=== PATIENT | male | born 1995 | race Caucasian/White ===

== ENCOUNTER 2025-07-06 19:20 | Emergency (ER) | payer BC, SELFPAY ==
--- NOTE | ~2025-07-06 | XR_ITS ---
XR chest 1V portable INDICATION:Chest discomfort . REFERENCE: 12/18/2018 FINDINGS: A single AP of the chest demonstrates normal heart size. The lungs are clear. There is no evidence of pneumothorax or pleural effusion. IMPRESSION: No acute pulmonary findings. Reviewed, dictated and finalized at location S. [facility]
[2025-07-06 19:25] VITALS: BP 130/78; PULSE 68; RESP 18; TEMP 36.7; O2SAT 98
--- NOTE | 2025-07-06 19:37 | ECG_ITS ---
Test Date: 2025-07-06 19:45:33 Measurements Intervals [place] Rate: 62 P: 42 VA: 154 QRS: 48 QRSD: 79 T: 35 QT: 358 QTc: 366 Interpretive Statements SINUS RHYTHM WITH SINUS ARRHYTHMIA No previous ECG available for comparison Electronically Signed On 07-06-2025 21:28:06 [employer] by Nilesh Corral M.D.
--- NOTE | 2025-07-06 19:37 | ED_ITS ---
HPI - URI/Sore Throat General Chief Complaint: Upper Respiratory Infection Stated Complaint: upper resp infection Time Seen by Provider: 07/06/25 19:37 Source: patient and family Mode of arrival: ambulatory Limitations: no limitations History of Present Illness HPI Narrative: This is a 29-year-old male with history of hypertension hyperlipidemia presents with chest pain with deep inspiration non reproducible no radiation of his pain no shortness of breath no fever chills does have some body aches with some no nausea vomiting no abdominal pain no dysuria no flank pain or hematuria. Pain started earlier today has been working on drywall repair. MD elicited complaint: cough Severity: mild Description of mucous: clear Exacerbating factors: deep breaths Related Data Allergies Allergy/AdvReac Type Severity Reaction Status Date / Time No Known Allergies Allergy Verified 07/06/25 19:48 Review of Systems Review of Systems: All systems reviewed & are unremarkable except as noted in HPI and below PMFSH Past Medical History Medical History HTN (hypertension) HLD (hyperlipidemia) Exam Const: General: healthy appearing Nutritional Appearance: well nourished and obese Orientation/consciousness: patient oriented x3 Neck: Neck: normal visual inspection and no lymphadenopathy Chest: Chest palpation & inspection: normal inspection of the chest Resp: Effort & Inspection: normal respiratory effort Auscultation: clear to auscultation bilaterally Cardio: Rate: regular rate Rhythm: regular rhythm GI: GI Palp: Yes Soft to palpation Auscultation: normal bowel sounds Back/Spine/Pelvis: Back: no CVA tenderness Skin: General skin exam: normal color Rashes: no rashes Course Course Emergency Course: Medical decision making narrative: The patient was evaluated by myself in the emergency department. History obtained from the patient was independent historian and physical exam performed and witnessed by nurse. Patient had an EKG which shows normal sinus rhythm x- ray that shows no acute cardiopulmonary abnormalities And COVID RSV influenza negative. Repeat assessment patient doing well on repeat exam with no acute distress Symptoms been stable since arrival to the emergency department Repeat vitals are stable Patient agrees with discussion and after shared medical decision making and agrees with discharge All questions answered to patient's satisfaction. Follow-up with primary in 3 to 5 days. Critical Care Time Critical Care Time Critical Care Time: No Discharge Plan Discharge Clinical Impression: Upper respiratory infection Qualifiers: URI type: unspecified URI Qualified Code(s): J06.9 - Acute upper respiratory infection, unspecified Patient Disposition: Home Condition: Stable Instructions: Antibiotic Form, Upper Respiratory Infection (ED) Additional Instructions: Advised take medication as prescribed and to follow with primary in the next 3 to 5 days. Patient Language: Kazakh Prescriptions: New azithromycin [Zithromax Z-Edward] 250 mg tablet See Rx Instructions .ROUTE .COMPLEX Qty: 6 0RF Rx Instructions: For 250 mg dose pack: take 500 mg today (day 1), then 250 mg for 4 days (days 2-5) Follow-up/Referrals: Simon,SRUTHI Quintanilla [Primary Care Provider]
[2025-07-06 20:38] LABS: Influenza A QL RT-PCR Negative (Negative); Influenza B QL RT-PCR Negative (Negative); RSV RNA, RT-PCR Negative (Negative); SARS-CoV-2 RNA PCR Negative (Negative)
[2025-07-06] MEDS: AZITHROMYCIN 250 MG TABLET 500 MG PO (20:46)
[2025-07-06 20:56] VITALS: BP 130/62; PULSE 74; RESP 18; O2SAT 99
--- OUTSIDE RECORDS SUMMARY | 2025-07-06 21:18 | XMS_ITS | Data Portability ---
Author Organization [facility] Address [address] [place] [address] Care Team Providers Care Wood Veneer Taper Name Role Phone FELIPE MONTES Primary Care Provider Assessment No assessment recorded. Plan of Treatment Reminders Order Date Submit Date Provider Last Modified By Organization Details Last Modified Time Details Appointments ANY 15 2025 10:45A M Felipe Montes, SONJA Not available Not available Not available Lab CBC 2024 025 [facility], [address] [place] [address], [address], 12/03/2024 06:49:59 CMP, serum or plasma 2024 025 [facility], [address] [place] [address] 2, [place], [address], 12/03/2024 06:49:57 lipid panel, serum 2024 025 [facility], [address] [place] [address], [facility] 2, [place], [address], 12/03/2024 06:49:56 HbA1c (hemoglob in A1c), blood 2024 025 [facility], [address] [facility], [facility] 2, [place], [address], 12/03/2024 07:33:43 HbA1c (hemoglob in A1c), blood 2023 024 JENNIFER In-Office Order, Internal Use Only DO Not Attach Compendium DO Not Attach Compendium, Do Not Delete/merge, [id number] 06/03/2024 12:32:06 CBC 2023 024 JENNIFER JAVIER, [address] [facility] 2, [place], [address], 06/04/2024 06:20:21 CMP, serum or plasma 2023 024 JENN[facility]ER [facility], [address] [facility] 2, [place], [address], 06/04/2024 06:20:20 lipid panel, serum 2023 024 JENNIFER SUKHDEEP, [address] [facility] 2, [place], [address], 06/04/2024 06:20:18 Referral gastroent erologist referral 2024 JENNIFER Aleja Michelle [employer], [address] [facility], [facility] [address], [place], [address], 05/10/2025 09:45:06 Procedures None recorded. Surgeries None recorded. Imaging None recorded. Medication Orders atenolol [address] [facility], [address] [place], [address], 07/03/2025 11:37:34 pantopraz ole 40 mg tablet,de layed release [address] [facility], [address] [place], [address], 06/05/2025 11:58:33 amlodipin e 5 mg tablet [address] [facility], [address] [place], [address], 06/05/2025 11:58:32 Nexium 40 mg capsule,d elayed release 2024 025 [facility] [address], [address], 06/05/2025 11:43:29 Patient TargetsNo targets recorded. Patient Instructions Encounter Date Encounter Id Patient Instructions Last Modified By Organization Details Last Modified Time 06/03/2024 [id number] A healthy lifestyle: care instructions jnanney Not available 06/03/2024 12:11:12 12/02/2024 [id number] A healthy lifestyle: care instructions jnanney Not available 12/02/2024 11:53:23 A healthy lifestyle: care instructions jnanney Not available 12/02/2024 11:53:23 06/05/2025 [id number] learning about high blood pressure jnanney Not available 06/05/2025 11:58:30 07/03/2025 [id number] learning about high blood pressure jnanney Not available 07/03/2025 11:37:25 Reason for Referral Solderer Referral for Gastroesophageal reflux disease without esophagitis Referring Physician: Felipe Montes, Family Medicine, Encounter Date: 04/12/2025 Results Created Date Observation Date Name Description Value Unit Range Abnormal Flag Note LastModifiedBy Organization Detail LastModifiedTime 06/03/2006/03/2024 LIPID PANEL cholesterol, total 146 mg/dL 100-19 9 Not Available [facility] [address] [place], [address], 06/04/2024 06:20:18 06/03/2006/03/2024 LIPID PANEL triglyceride s 210 mg/dL 0-149 above high normal Not Available [facility] [address] [place], [address], 06/04/2024 06:20:18 06/03/2006/03/2024 LIPID PANEL HDL cholesterol 40 mg/dL 40-[address] [facility] [address] [place], [address], 06/04/2024 06:20:18 06/03/20 24 06/03/2024 LIPID PANEL VLDL cholesterol daniel 42 mg/dL 5-40 above high normal Not Available [address], [address], 06/04/2024 06:20:18 06/03/20 24 06/03/2024 LIPID PANEL LDL chol calc (nih) 96 mg/dL 0-99 Not Available [address], [address], 06/04/2024 06:20:18 06/03/20 24 06/03/2024 COMP. METAB OLIC PANEL (14) glucose 90 mg/dL 70-99 Not Available [facility] & [address], [address], 06/04/2024 06:20:19 06/03/20 24 06/03/2024 COMP. METAB OLIC PANEL (14) BUN 22 mg/dL 6-20 above high normal Not Available [address], [address], 06/04/2024 06:20:19 06/03/20 24 06/03/2024 COMP. METAB OLIC PANEL (14) creatinine 1.07 mg/dL 0.76-1 .27 Not Available [address], [address], 06/04/2024 06:20:19 06/03/20 24 06/03/2024 COMP. METAB OLIC PANEL (14) eGFR 98 >=60 Units for eGFR value s are mL/mi n/1.7 3 The eGFR Calcu latio n has not been valid ated for patie nts under the age of 18. If test resul ts are displ ayed for a patie nt under the age of 18, disre ijeoma that value . Not Available [address], [address], 06/04/2024 06:20:19 06/03/20 24 06/03/2024 COMP. METAB OLIC PANEL (14) BUN/creatini ne ratio 21 9-20 above high normal Not Available [address], [address], 06/04/2024 06:20:19 06/03/20 24 06/03/2024 COMP. METAB OLIC PANEL (14) sodium 139 mmol/ L 134-14 4 Not Available [address], [address], 06/04/2024 06:20:19 06/03/20 24 06/03/2024 COMP. METAB OLIC PANEL (14) potassium 4.6 mmol/ L 3.5-5. 2 Not Available [address], [facility], 06/04/2024 06:20:19 06/03/20 24 06/03/2024 COMP. METAB OLIC PANEL (14) chloride 102 mmol/ L 96-106 Not Available [address], [address], 06/04/2024 06:20:19 06/03/20 24 06/03/2024 COMP. METAB OLIC PANEL (14) carbon dioxide, total 27 mmol/ L 20-29 Not Available [address], [address], 06/04/2024 06:20:19 06/03/20 24 06/03/2024 COMP. METAB OLIC PANEL (14) calcium 10.4 mg/dL 8.7-10 .2 above high normal Not Available [address], [address], 06/04/2024 06:20:19 06/03/20 24 06/03/2024 COMP. METAB OLIC PANEL (14) protein, total 7.6 g/dL 6.0-8. 5 Not Available [address], [address], 06/04/2024 06:20:19 06/03/20 24 06/03/2024 COMP. METAB OLIC PANEL (14) albumin 4.8 g/dL 4.3-5. 2 Not Available [address], [address], 06/04/2024 06:20:19 06/03/20 24 06/03/2024 COMP. METAB OLIC PANEL (14) globulin, total 2.8 g/dL 1.5-4. 5 Not Available [address], [address], 06/04/2024 06:20:19 06/03/20 24 06/03/2024 COMP. METAB OLIC PANEL (14) A/G ratio 1.7 1.2-2. 2 Not Available [address], [address], 06/04/2024 06:20:19 06/03/20 24 06/03/2024 COMP. METAB OLIC PANEL (14) bilirubin, total 0.5 mg/dL 0.0-1. 2 Not Available [address], [address], 06/04/2024 06:20:19 06/03/2006/03/2024 COMP. METAB OLIC PANEL (14) alkaline phosphatase 75 IU/L 44-121 Not Available [address], [address], 06/04/2024 06:20:19 06/03/20 24 06/03/2024 COMP. METAB OLIC PANEL (14) AST (SGOT) 36 IU/L 0-40 Not Available [address], [address], 06/04/2024 06:20:19 06/03/2006/03/2024 COMP. METAB OLIC PANEL (14) ALT (SGPT) 70 IU/L 0-44 above high normal Not Available [address], [address], 06/04/2024 06:20:19 06/03/2006/03/2024 CARDI OVASC ULAR REPOR T interpretati on Note Suppl ement al repor t is avail able. Not Available [address], [address], 06/04/2024 06:20:21 06/03/2006/03/2024 CARDI OVASC ULAR REPOR T pdf . Not Available [address], [address], 06/04/2024 06:20:21 06/03/2006/03/2024 CBC, PLATE LET, NO DIFFE RENTI AL WBC 5.5 x10e3 /uL 3.4-10 .8 Not Available [address], [address], 06/04/2024 06:20:21 06/03/2006/03/2024 CBC, PLATE LET, NO DIFFE RENTI AL RBC 5.15 x10e6 /uL 4.14-5 .80 Not Available [address], [address], 06/04/2024 06:20:21 06/03/2006/03/2024 CBC, PLATE LET, NO DIFFE RENTI AL hemoglobin 15.3 g/dL 13.0-1 7.7 Not Available [address], [address], 06/04/2024 06:20:21 06/03/2023 0606/03/2024 CBC, PLATE LET, NO DIFFE RENTI AL hematocrit 46.3 % 37.5-5 1.0 Not Available [address], [address], 06/04/2024 06:20:21 06/03/20 24 06/03/2024 CBC, PLATE LET, NO DIFFE RENTI AL MCV 90 fL 79-97 Not Available [address], [address], 06/04/2024 06:20:21 06/03/2006/03/2024 CBC, PLATE LET, NO DIFFE RENTI AL MCH 29.7 pg 26.6-3 3.0 Not Available [address], [address], 06/04/2024 06:20:21 06/03/2006/03/2024 CBC, PLATE LET, NO DIFFE RENTI AL MCHC 33.0 g/dL 31.5-3 5.7 Not Available [address], [address], 06/04/2024 06:20:21 06/03/2006/03/2024 CBC, PLATE LET, NO DIFFE RENTI AL RDW 12.6 % 11.5-1 4.5 Not Available [address], [address], 06/04/2024 06:20:21 06/03/2006/03/2024 CBC, PLATE LET, NO DIFFE RENTI AL platelets 211 x10e3 /uL 150-45 0 Mean Plate let Volum e 11.3 fL 8.9-1 2.7 N Not Available [address], [address], 06/04/2024 06:20:21 06/03/2006/03/2024 CBC, PLATE LET, NO DIFFE RENTI AL NRBC 0 % 0-0 Not Available [facility] & [address], [place], [address], 06/04/2024 06:20:21 06/03/2006/03/2024 HbA1c (hemo globi n A1c), blood HbA1c 5.7 Not Available In-Office Order Internal Use Only DO Not Attach Compendium DO Not Attach Compendium, Do Not Delete/merge, [id number] 06/03/2024 12:11:04 07/27/2007/27/2024 Lipas e [Enzy matic activ ity/v olume ] in Serum or Plasm a lipase [enzymatic activity/vol ume] in serum or plasma 22 U/L low: 8U/Lhi gh: 78U/L LIPAS E 22 8 - 78 U/L 07/27 3:13 PM [facility] Not Available Not Available 12/02/2024 11:40:31 07/27/20 24 07/27/2024 Lipas e [Enzy matic activ ity/v olume ] in Serum or Plasm a interpretati on and review of laboratory results Normal Not Available Not Available 11/2024 11:40:31 07/27/20 24 07/27/2024 CBC W Auto Diffe renti al panel - Blood leukocytes [#/volume] in blood by automated count 5.95 text: 4.00 - 12.00 10(3)/ mcL WBC 5.95 4.00 - 12.00 10(3) /mcL 07/27 2:38 PM [facility] Not Available Not Available 12/02/2024 11:40:31 07/27/20 24 07/27/2024 CBC W Auto Diffe renti al panel - Blood erythrocytes [#/volume] in blood by automated count 4.96 text: 4.40 - 5.80 10(6)/ mcL RBC 4.96 4.40 - 5.80 10(6) /mcL 07/27 2:38 PM [facility] Not Available Not Available 12/02/2024 11:40:31 07/27/20 24 07/27/2024 CBC W Auto Diffe renti al panel - Blood hemoglobin [mass/volume ] in blood 15 g/dL low: 13g/dL high: 16.5g/ dL HEMOG LOBIN (HGB) 15.0 13.0 - 16.5 g/dL 07/27 2:38 PM [facility] Not Available Not Available 12/02/2024 11:40:31 07/27/20 24 07/27/2024 CBC W Auto Diffe renti al panel - Blood hematocrit [volume fraction] of blood by automated count 43.1 % low: 38%hig h: 50% HEMAT OCRIT (HCT) 43.1 38.0 - 50.0 % 07/27 2:38 PM [facility] Not Available Not Available 12/02/2024 11:40:31 07/27/20 24 07/27/2024 CBC W Auto Diffe renti al panel - Blood MCV [entitic mean volume] in red blood cells by automated count 86.9 fL low: 82fLhi gh: 96fL MCV 86.9 82.0 - 96.0 fL 07/27 2:38 PM [facility] Not Available Not Available 12/02/2024 11:40:31 07/27/20 24 07/27/2024 CBC W Auto Diffe renti al panel - Blood MCH [entitic mass] by automated count 30.2 pg low: 26pghi gh: 32pg MCH 30.2 26.0 - 32.0 pg 07/27 2:38 PM [facility] Not Available Not Available 12/02/2024 11:40:31 07/27/20 24 07/27/2024 CBC W Auto Diffe renti al panel - Blood MCHC [entitic mass/volume] in red blood cells by automated count 34.8 g/dL low: 31g/dL high: 36g/dL MCHC 34.8 31.0 - 36.0 g/dL 07/27 2:38 PM [facility] Not Available Not Available 12/02/2024 11:40:31 07/27/20 24 07/27/2024 CBC W Auto Diffe renti al panel - Blood platelets [#/volume] in blood 213 text: 140 - 440 10(3)/ mcL PLATE LET COUNT 213 140 - 440 10(3) /mcL 07/27 2:38 PM [facility] Not Available Not Available 12/02/2024 11:40:31 07/27/20 24 07/27/2024 CBC W Auto Diffe renti al panel - Blood erythrocyte [distwidth] in red blood cells by automated count 11.7 % low: 11.8%h igh: 15.5% low RDW 11.7 (L) 11.8 - 15.5 % 07/27 2:38 PM [facility] Not Available Not Available 12/02/2024 11:40:31 07/27/20 24 07/27/2024 CBC W Auto Diffe renti al panel - Blood platelet [entitic mean volume] in blood by automated count 11.2 fL low: 8fLhig h: 12.6fL MPV 11.2 8.0 - 12.6 fL 07/27 2:38 PM [facility] Not Available Not Available 12/02/2024 11:40:31 07/27/20 24 07/27/2024 CBC W Auto Diffe renti al panel - Blood neutrophils/ leukocytes in blood by automated count 48.7 % low: 40%hig h: 68% NEUTR OPHIL S 48.7 40.0 - 68.0 % 07/27 2:38 PM [facility] Not Available Not Available 12/02/2024 11:40:31 07/27/20 24 07/27/2024 CBC W Auto Diffe renti al panel - Blood lymphocytes/ leukocytes in blood by automated count 42.5 % low: 19%hig h: 49% LYMPH OCYTE S 42.5 19.0 - 49.0 % 07/27 2:38 PM [facility] Not Available Not Available 12/02/2024 11:40:31 07/27/20 24 07/27/2024 CBC W Auto Diffe renti al panel - Blood monocytes/le ukocytes in blood by automated count 6.9 % low: 3%high : 13% MONOC YTES 6.9 3.0 - 13.0 % 07/27 2:38 PM [facility] Not Available Not Available 12/02/2024 11:40:31 07/27/20 24 07/27/2024 CBC W Auto Diffe renti al panel - Blood eosinophils/ leukocytes in blood by automated count 1.2 % low: 0%high : 8% EOSIN OPHIL S 1.2 0.0 - 8.0 % 07/27 2:38 PM [facility] Not Available Not Available 12/02/2024 11:40:31 07/27/20 24 07/27/2024 CBC W Auto Diffe renti al panel - Blood basophils/le ukocytes in blood by automated count 0.7 % low: 0%high : 1% BASOP HILS 0.7 0.0 - 1.0 % 07/27 2:38 PM [facility] Not Available Not Available 12/02/2024 11:40:31 07/27/20 24 07/27/2024 CBC W Auto Diffe renti al panel - Blood neutrophils [#/volume] in blood by automated count 2.9 text: 1.40 - 5.30 10(3)/ mcL ABSOL KNIK NEUTR OPHIL S 2.90 1.40 - 5.30 10(3) /mcL 07/27 2:38 PM [facility] Not Available Not Available 12/02/2024 11:40:31 07/27/20 24 07/27/2024 CBC W Auto Diffe renti al panel - Blood lymphocytes [#/volume] in blood by automated count 2.53 text: 0.90 - 3.30 10(3)/ mcL ABSOL KNIK LYMPH OCYTE S 2.53 0.90 - 3.30 10(3) /mcL 07/27 2:38 PM [facility] Not Available Not Available 12/02/2024 11:40:31 07/27/20 24 07/27/2024 CBC W Auto Diffe renti al panel - Blood monocytes [#/volume] in blood by automated count 0.41 text: 0.10 - 0.90 10(3)/ mcL ABSOL KNIK MONOC YTES 0.41 0.10 - 0.90 10(3) /mcL 07/27 2:38 PM [facility] Not Available Not Available 12/02/2024 11:40:31 07/27/20 24 07/27/2024 CBC W Auto Diffe renti al panel - Blood eosinophils [#/volume] in blood by automated count 0.07 text: 0.00 - 0.50 10(3)/ mcL ABSOL KNIK EOSIN OPHIL 0.07 0.00 - 0.50 10(3) /mcL 07/27 2:38 PM [facility] Not Available Not Available 12/02/2024 11:40:31 07/27/20 24 07/27/2024 CBC W Auto Diffe renti al panel - Blood basophils [#/volume] in blood by automated count 0.04 text: 0.00 - 0.10 10(3)/ mcL ABSOL KNIK BASOP HILS 0.04 0.00 - 0.10 10(3) /mcL 07/27 2:38 PM [facility] Not Available Not Available 12/02/2024 11:40:31 07/27/20 24 07/27/2024 CBC W Auto Diffe renti al panel - Blood nucleated erythrocytes /leukocytes [ratio] in blood 0 NRBC PER 100 WBC 0 07/27 2:38 PM [facility] Not Available Not Available 12/02/2024 11:40:31 07/27/20 24 07/27/2024 CBC W Auto Diffe renti al panel - Blood interpretati on and review of laboratory results Abnorm al Not Available Not Available 11:40:31 07/27/20 24 07/27/2024 Magne sium [Mass /volu me] in Serum or Plasm a magnesium [mass/volume ] in serum or plasma 2.1 mg/dL low: 1.6mg/ dLhigh : 2.6mg/ dL MAGNE SIUM 2.1 1.6 - 2.6 mg/dL 07/27 2:58 PM [facility] Not Available Not Available 12/02/2024 11:40:31 07/27/20 24 07/27/2024 Magne sium [Mass /volu me] in Serum or Plasm a interpretati on and review of laboratory results Normal Not Available Not Available 11/2024 11:40:31 07/27/20 24 07/27/2024 Compr ehens kenyetta metab olic 1999 panel - Serum or Plasm a sodium [moles/volum e] in serum or plasma 140 mmol/ L low: 136mmo l/Lhig h: 145mmo l/L SODIU M 140 136 - 145 mmol/ L 07/27 2:58 PM [facility] Not Available Not Available 12/02/2024 11:40:31 07/27/20 24 07/27/2024 Compr ehens [place] metab olic 1999 panel - Serum or Plasm a potassium [moles/volum e] in serum or plasma 3.8 mmol/ L low: 3.5mmo l/Lhig h: 5.1mmo l/L POTAS SIUM 3.8 3.5 - 5.1 mmol/ L 07/27 2:58 PM [facility] Not Available Not Available 12/02/2024 11:40:31 07/27/20 24 07/27/2024 Compr ehens [place] metab olic 2000 panel - Serum or Plasm a chloride [moles/volum e] in serum or plasma 106 mmol/ L low: 98mmol /Lhigh : 107mmo l/L CHLOR OSBALDO 106 98 - 107 mmol/ L 07/27 2:58 PM [facility] Not Available Not Available 12/02/2024 11:40:31 07/27/20 24 07/27/2024 Compr ehens [place] metab olic 1999 panel - Serum or Plasm a carbon dioxide, total [moles/volum e] in serum or plasma 24 mmol/ L low: 22mmol /Lhigh : 30mmol /L CO2, VENOU S 24 22 - 30 mmol/ L 07/27 2:58 PM [facility] Not Available Not Available 12/02/2024 11:40:31 07/27/20 24 07/27/2024 Compr ehens [place]en[place] metab olic 1999 panel - Serum or Plasm a anion gap in serum or plasma by calculation 13.8 mmol/ L high: 18mmol /L ANION GAP 13.8 <18.0 mmol/ L 07/27 2:58 PM [facility] Not Available Not Available 12/02/2024 11:40:31 07/27/20 24 07/27/2024 Compr ehens [place] metab olic 1999 panel - Serum or Plasm a glucose [mass/volume ] in serum or plasma 109 mg/dL low: 70mg/d Lhigh: 99mg/d L high GLUCO SE 109 (H) 70 - 99 mg/dL 07/27 2:58 PM [facility] Not Available Not Available 12/02/2024 11:40:31 07/27/20 24 07/27/2024 Compr ehens [place] metab olic 1999 panel - Serum or Plasm a urea nitrogen [mass/volume ] in serum or plasma 12 mg/dL low: 9mg/dL high: 21mg/d L BUN 12 9 - 21 mg/dL 07/27 2:58 PM [facility] Not Available Not Available 12/02/2024 11:40:31 07/27/20 24 07/27/2024 Compr ehens [place] metab olic 1999 panel - Serum or Plasm a creatinine [mass/volume ] in serum or plasma 1.24 mg/dL low: 0.7mg/ dLhigh : 1.3mg/ dL CREAT ININE , BLOOD 1.24 0.70 - 1.30 mg/dL 07/27 2:58 PM [facility] Not Available Not Available 12/02/2024 11:40:31 07/27/20 24 07/27/2024 Compr ehens [place]en[place] metab olic 2000 panel - Serum or Plasm a urea nitrogen/cre atinine [mass ratio] in serum or plasma 10 text: 12 - 20 ratio low BUN/C REATI NINE RATIO 10 (L) 12 - 20 ratio 07/27 2:58 PM [facility] Not Available Not Available 12/02/2024 11:40:31 07/27/20 24 07/27/2024 Compr Socruiseens [place] metab olic 2000 panel - Serum or Plasm a protein [mass/volume ] in serum or plasma 7.4 g/dL low: 6.3g/d Lhigh: 8.2g/d L TOTAL PROTE IN 7.4 6.3 - 8.2 g/dL 07/27 2:58 PM [facility] Not Available Not Available 12/02/2024 11:40:31 07/27/20 24 07/27/2024 Compr Socruiseens [place] metab olic 2000 panel - Serum or Plasm a albumin [mass/volume ] in serum or plasma 4.5 g/dL low: 3.5g/d Lhigh: 5g/dL ALBUM IN 4.5 3.5 - 5.0 g/dL 07/27 2:58 PM [facility] Not Available Not Available 12/02/2024 11:40:31 07/27/20 24 07/27/2024 Compr Socruiseens [place] metab olic 2000 panel - Serum or Plasm a albumin/glob ulin [mass ratio] in serum or plasma 1.6 low: 1high: 2.2 A/G RATIO 1.6 1.0 - 2.2 07/27 2:58 PM [facility] Not Available Not Available 12/02/2024 11:40:31 07/27/20 24 07/27/2024 Compr ehens [place] metab olic 1999 panel - Serum or Plasm a calcium [mass/volume ] in serum or plasma 9.7 mg/dL low: 8.7mg/ dLhigh : 10.5mg /dL CALCI UM 9.7 8.7 - 10.5 mg/dL 07/27 2:58 PM [facility] Not Available Not Available 12/02/2024 11:40:31 07/27/20 24 07/27/2024 Compr ehens [place] metab olic 1999 panel - Serum or Plasm a bilirubin.to sanjana [mass/volume ] in serum or plasma 0.5 mg/dL low: 0.2mg/ dLhigh : 1.2mg/ dL T BILI 0.5 0.2 - 1.2 mg/dL 07/27 2:58 PM [facility] [employer] R [facility] Not Available Not Available 12/02/2024 11:40:31 07/27/20 24 07/27/2024 Compr ehens [place] metab olic 1999 panel - Serum or Plasm a aspartate aminotransfe rase [enzymatic activity/vol ume] in serum or plasma 36 U/L low: 5U/Lhi gh: 34U/L high SGOT (AST) 36 (H) 5 - 34 U/L 07/27 2:58 PM [facility] [employer] [facility] Not Available Not Available 12/02/2024 11:40:31 07/27/20 24 07/27/2024 Compr ehens [place] metab olic 1999 panel - Serum or Plasm a alanine aminotransfe rase [enzymatic activity/vol ume] in serum or plasma 76 U/L low: 0U/Lhi gh: 55U/L high SGPT (ALT) 76 (H) 0 - 55 U/L 07/27 2:58 PM [facility] [employer] Not Available Not Available 12/02/2024 11:40:31 07/27/20 24 07/27/2024 Compr ehens [place] metab olic 1999 panel - Serum or Plasm a alkaline phosphatase [enzymatic activity/vol ume] in serum or plasma 62 U/L low: 40U/Lh igh: 150U/L ALKAL INE PHOSP HATAS E 62 40 - 150 U/L 07/27 2:58 PM [facility] H CENTE R LAB Not Available Not Available 12/02/2024 11:40:31 07/27/20 24 07/27/2024 Compr Socruiseens [place] metab olic 2000 panel - Serum or Plasm a glomerular filtration rate [volume rate/area] in serum, plasma or blood by creatinine-b ased formula (MDRD)/1.73 sq M among non black population low: 60 GFR, ESTIM ATED >60 >=60 07/27 2:58 PM [facility] H C[facility] R LAB Not Available Not Available 12/02/2024 11:40:31 07/27/20 24 07/27/2024 Compr ehens [place] metab olic 2000 panel - Serum or Plasm a glomerular filtration rate [volume rate/area] in serum, plasma or blood by creatinine-b ased formula (MDRD)/1.73 sq M among black population low: 60 GFR, EST. AFRIC AN >60 >=60 07/27 2:58 PM [facility] H CENT[facility] R LAB Not Available Not Available 12/02/2024 11:40:31 07/27/20 24 07/27/2024 Compr ehens [place] metab olic 2000 panel - Serum or Plasm a glomerular filtration rate [volume rate/area] in serum, plasma or blood by creatinine-b ased formula (MDRD)/1.73 sq M among non black population low: 60 GFR, EST. NONAF RICAN >60 >=60 07/27 2:58 PM [facility] Not Available Not Available 12/02/2024 11:40:31 07/27/20 24 07/27/2024 Compr ehens [place] metab olic 2000 panel - Serum or Plasm a interpretati on and review of laboratory results Abnorm al Not Available Not Available 11:40:31 12/03/19 25 12/02/2024 LIPID PANEL cholesterol, total 147 mg/dL 100-19 9 Not Available [address], [address], 12/03/2024 06:49:56 12/03/19 25 12/02/2024 LIPID PANEL triglyceride s 352 mg/dL 0-149 above high normal Not Available [address], [address], 12/03/2024 06:49:56 12/03/19 25 12/02/2024 LIPID PANEL HDL cholesterol 39 mg/dL 40-999 below low normal Not Available [address], [address], 12/03/2024 06:49:56 12/03/19 25 12/02/2024 LIPID PANEL VLDL cholesterol daniel 70 mg/dL 5-40 above high normal Not Available [address], [address], 12/03/2024 06:49:56 12/03/19 25 12/02/2024 LIPID PANEL LDL chol calc (nih) 96 mg/dL 0-99 Not Available [address], [address], 12/03/2024 06:49:56 12/03/19 25 12/02/2024 COMP. METAB OLIC PANEL (14) glucose 103 mg/dL 70-99 above high normal Not Available [address], [address], 12/03/2024 06:49:57 12/03/19 25 12/02/2024 COMP. METAB OLIC PANEL (14) BUN 19 mg/dL 6-20 Not Available [address], [address], 12/03/2024 06:49:57 12/03/19 25 12/02/2024 COMP. METAB OLIC PANEL (14) creatinine 0.97 mg/dL 0.76-1 .27 Not Available [address], [address], 12/03/2024 06:49:57 12/03/19 25 12/02/2024 COMP. METAB OLIC PANEL (14) eGFR 109 >=60 Units for eGFR value s are mL/mi n/1.7 3 The eGFR Calcu latio n has not been valid ated for patie nts under the age of 18. If test resul ts are displ ayed for a patie nt under the age of 18, disre ijeoma that value . Not Available [address], [address], 12/03/2024 06:49:57 12/03/19 25 12/02/2024 COMP. METAB OLIC PANEL (14) BUN/creatini ne ratio 20 9-20 Not Available [address], [address], 12/03/2024 06:49:57 12/03/19 25 12/02/2024 COMP. METAB OLIC PANEL (14) sodium 140 mmol/ L 134-14 4 Not Available [address], [address], 12/03/2024 06:49:57 12/03/19 25 12/02/2024 COMP. METAB OLIC PANEL (14) potassium 4.5 mmol/ L 3.5-5. 2 Not Available [address], [address], 12/03/2024 06:49:57 12/03/19 25 12/02/2024 COMP. METAB OLIC PANEL (14) chloride 101 mmol/ L 96-106 Not Available [address], [address], 12/03/2024 06:49:57 12/03/19 25 12/02/2024 COMP. METAB OLIC PANEL (14) carbon dioxide, total 28 mmol/ L 20-29 Not Available [address], [address], 12/03/2024 06:49:57 12/03/19 25 12/02/2024 COMP. METAB OLIC PANEL (14) calcium 10.5 mg/dL 8.7-10 .2 above high normal Not Available [address], [address], 12/03/2024 06:49:57 12/03/19 25 12/02/2024 COMP. METAB OLIC PANEL (14) protein, total 7.7 g/dL 6.0-8. 5 Not Available [address], [address], 12/03/2024 06:49:57 12/03/19 25 12/02/2024 COMP. METAB OLIC PANEL (14) albumin 4.9 g/dL 4.3-5. 2 Not Available [address], [address], 12/03/2024 06:49:57 12/03/19 25 12/02/2024 COMP. METAB OLIC PANEL (14) globulin, total 2.8 g/dL 1.5-4. 5 Not Available [address], [address], 12/03/2024 06:49:57 12/03/19 25 12/02/2024 COMP. METAB OLIC PANEL (14) A/G ratio 1.8 1.2-2. 2 Not Available [address], [address], 12/03/2024 06:49:57 12/03/19 25 12/02/2024 COMP. METAB OLIC PANEL (14) bilirubin, total 0.5 mg/dL 0.0-1. 2 Not Available [address], [address], 12/03/2024 06:49:57 12/03/19 25 12/02/2024 COMP. METAB OLIC PANEL (14) alkaline phosphatase 71 IU/L 44-121 Not Available [address], [address], 12/03/2024 06:49:57 12/03/19 25 12/02/2024 COMP. METAB OLIC PANEL (14) AST (SGOT) 35 U/L 0-40 Not Available [address], [address], 12/03/2024 06:49:57 12/03/19 25 12/02/2024 COMP. METAB OLIC PANEL (14) ALT (SGPT) 81 IU/L 0-44 above high normal Not Available [address], [address], 12/03/2024 06:49:57 12/03/1912/02/2024 CARDI OVASC ULAR REPOR T interpretati on Note Suppl nikky khan repor t is avail able. Not Available [address], [address], 12/03/2024 06:49:59 12/03/1912/02/2024 CARDI OVASC ULAR REPOR T pdf . Not Available [address], [address], 12/03/2024 06:49:59 12/03/1912/02/2024 CBC, PLATE LET, NO DIFFE RENTI AL WBC 6.4 x10e3 /uL 3.4-10 .8 Not Available [address], [address], 12/03/2024 06:49:59 12/03/1912/02/2024 CBC, PLATE LET, NO DIFFE RENTI AL RBC 5.32 x10e6 /uL 4.14-5 .80 Not Available [address], [address], 12/03/2024 06:49:59 12/03/1912/02/2024 CBC, PLATE LET, NO DIFFE RENTI AL hemoglobin 15.7 g/dL 13.0-1 7.7 Not Available [address], [address], 12/03/2024 06:49:59 12/03/1912/02/2024 CBC, PLATE LET, NO DIFFE RENTI AL hematocrit 46.7 % 37.5-5 1.0 Not Available [address], [address], 12/03/2024 06:49:59 12/03/1912/02/2024 CBC, PLATE LET, NO DIFFE RENTI AL MCV 88 fL 79-97 Not Available [address], [address], 12/03/2024 06:49:59 12/03/1912/02/2024 CBC, PLATE LET, NO DIFFE RENTI AL MCH 29.5 pg 26.6-3 3.0 Not Available [address], [address], 12/03/2024 06:49:59 12/03/1912/02/2024 CBC, PLATE LET, NO DIFFE RENTI AL MCHC 33.6 g/dL 31.5-3 5.7 Not Available [address], [address], 12/03/2024 06:49:59 12/03/19 25 12/02/2024 CBC, PLATE LET, NO DIFFE RENTI AL RDW 11.9 % 11.5-1 4.5 Not Available [address], [address], 12/03/2024 06:49:59 12/03/19 25 12/02/2024 CBC, PLATE LET, NO DIFFE RENTI AL platelets 208 x10e3 /uL 150-45 0 Mean Plate let Volum e 11.0 fL 8.9-1 2.7 N Not Available [address], [address], 12/03/2024 06:49:59 12/03/19 25 12/02/2024 CBC, PLATE LET, NO DIFFE RENTI AL NRBC 0 % 0-0 Not Available [address], [address], 12/03/2024 06:49:59 12/03/1912/03/2024 HEMOG LOBIN A1C hemoglobin A1C 6.2 % 4.8-5. 6 above high normal Predi abete s: 5.7 - 6.4 Diabe umair: >6.4 Glyce sanchez contr ol for adult s with diabe umair: <7.0 Not Available [facility]) [address] [facility], [place], [address], 12/03/2024 07:33:42 03/27/2003/27/2025 CBC W Auto Diffe renti al panel - Blood leukocytes [#/volume] in blood by automated count 5.9 text: 4.00 - 12.00 10(3)/ mcL Not Available Not Available 04/12/2025 04:28:15 03/27/20 25 03/27/2025 CBC W Auto Diffe renti al panel - Blood erythrocytes [#/volume] in blood by automated count 4.69 text: 4.40 - 5.80 10(6)/ mcL Not Available Not Available 04/12/2025 04:28:15 03/27/20 25 03/27/2025 CBC W Auto Diffe renti al panel - Blood hemoglobin [mass/volume ] in blood 14.3 g/dL low: 13g/dL high: 16.5g/ dL Not Available Not Available 04/12/2025 04:28:15 03/27/20 25 03/27/2025 CBC W Auto Diffe renti al panel - Blood hematocrit [volume fraction] of blood by automated count 41 % low: 38%hig h: 50% Not Available Not Available 04/12/2025 04:28:15 03/27/20 25 03/27/2025 CBC W Auto Diffe renti al panel - Blood MCV [entitic mean volume] in red blood cells by automated count 87.4 fL low: 82fLhi gh: 96fL Not Available Not Available 04/12/2025 04:28:15 03/27/20 25 03/27/2025 CBC W Auto Diffe renti al panel - Blood MCH [entitic mass] by automated count 30.5 pg low: 26pghi gh: 32pg Not Available Not Available 04/12/2025 04:28:15 03/27/20 25 03/27/2025 CBC W Auto Diffe renti al panel - Blood MCHC [entitic mass/volume] in red blood cells by automated count 34.9 g/dL low: 31g/dL high: 36g/dL Not Available Not Available 04/12/2025 04:28:15 03/27/20 25 03/27/2025 CBC W Auto Diffe renti al panel - Blood platelets [#/volume] in blood 193 text: 140 - 440 10(3)/ mcL Not Available Not Available 04/12/2025 04:28:15 03/27/20 25 03/27/2025 CBC W Auto Diffe renti al panel - Blood erythrocyte [distwidth] in red blood cells by automated count 12 % low: 11.8%h igh: 15.5% Not Available Not Available 04/12/2025 04:28:15 03/27/20 25 03/27/2025 CBC W Auto Diffe renti al panel - Blood platelet [entitic mean volume] in blood by automated count 11.6 fL low: 8fLhig h: 12.6fL Not Available Not Available 04/12/2025 04:28:15 03/27/20 25 03/27/2025 CBC W Auto Diffe renti al panel - Blood neutrophils/ leukocytes in blood by automated count 46.6 % low: 40%hig h: 68% Not Available Not Available 04/12/2025 04:28:15 03/27/20 25 03/27/2025 CBC W Auto Diffe renti al panel - Blood lymphocytes/ leukocytes in blood by automated count 43.2 % low: 19%hig h: 49% Not Available Not Available 04/12/2025 04:28:15 03/27/20 25 03/27/2025 CBC W Auto Diffe renti al panel - Blood monocytes/le ukocytes in blood by automated count 7.8 % low: 3%high : 13% Not Available Not Available 04/12/2025 04:28:15 03/27/20 25 03/27/2025 CBC W Auto Diffe renti al panel - Blood eosinophils/ leukocytes in blood by automated count 1.4 % low: 0%high : 8% Not Available Not Available 04/12/2025 04:28:15 03/27/20 25 03/27/2025 CBC W Auto Diffe renti al panel - Blood basophils/le ukocytes in blood by automated count 0.8 % low: 0%high : 1% Not Available Not Available 04/12/2025 04:28:15 03/27/20 25 03/27/2025 CBC W Auto Diffe renti al panel - Blood immature granulocyte 0.2 % low: 0%high : 0.4% Immat ure Granu locyt es inclu jesús Metam yeloc ytes, Myelo cytes , and Promy elocy umair. Not Available Not Available 04/12/2025 04:28:15 03/27/20 25 03/27/2025 CBC W Auto Diffe renti al panel - Blood neutrophils [#/volume] in blood by automated count 2.75 text: 1.40 - 5.30 10(3)/ mcL Not Available Not Available 04/12/2025 04:28:15 03/27/20 25 03/27/2025 CBC W Auto Diffe renti al panel - Blood lymphocytes [#/volume] in blood by automated count 2.55 text: 0.90 - 3.30 10(3)/ mcL Not Available Not Available 04/12/2025 04:28:15 03/27/20 25 03/27/2025 CBC W Auto Diffe renti al panel - Blood monocytes [#/volume] in blood by automated count 0.46 text: 0.10 - 0.90 10(3)/ mcL Not Available Not Available 04/12/2025 04:28:15 03/27/20 25 03/27/2025 CBC W Auto Diffe renti al panel - Blood eosinophils [#/volume] in blood by automated count 0.08 text: 0.00 - 0.50 10(3)/ mcL Not Available Not Available 04/12/2025 04:28:15 03/27/20 25 03/27/2025 CBC W Auto Diffe renti al panel - Blood basophils [#/volume] in blood by automated count 0.05 text: 0.00 - 0.10 10(3)/ mcL Not Available Not Available 04/12/2025 04:28:15 03/27/20 25 03/27/2025 CBC W Auto Diffe renti al panel - Blood absolute immature granulocyte 0.01 text: 0.00 - 0.03 10 (3) mcL. Not Available Not Available 04/12/2025 04:28:15 03/27/2003/27/2025 CBC W Auto Diffe renti al panel - Blood nucleated erythrocytes /leukocytes [ratio] in blood 0 Not Available Not Available 03/31 04:28:15 07/06/2007/06/2025 imagi ng/di agnos tic resul t No observ ation record ed. [facility] [address] [place], [address], 07/06/2025 20:59:59 Result Notes None recorded. Problems Name Problem SNOMED Code Status Onset Date Resolution Date Notes Provider Name and Address Organization Details Recorded Time Pain in finger 92779769 Active Felipe Montes PA-C Attn: Accounting ,[address] [place], [address] , [facility] - COUNTS INCLUDE 234 BEDS AT [facility] 12/28/2015 14:45:11 Problem Notes None recorded. Procedures Surgical History Date Name Laterality Status Provider Name and Address Organization Details Recorded Time 2024 esophagogastroduodenoscopy completed Josy Edwards, [place] - [facility] 11:44:22 Imaging Results None recorded. Procedure Notes None recorded. Medical Equipment None Reported. Allergies No known drug allergies Medications Name Sig Start Date Stop Date Status Note LastModified by Organization Details LastModified Time amoxicillin 500 mg capsule Take 1 capsule 3 times a day by oral route for 10 days. 02/18 completed Not Available Not Available Not Available atorvastati n 20 mg tablet TAKE ONE TABLET BY MOUTH DAILY 2024 active Not Available Not Available Not Avai lable naproxen 375 mg tablet TAKE 1 TABLET BY MOUTH TWICE DAILY WITH MEALS FOR PAIN DIRECTED 04/07 completed Not Available Not Available Not Available IBU 800 mg tablet 11/13 completed Not Available Not Available Not Available benzonatate 200 mg capsule TAKE ONE CAPSULE BY MOUTH THREE TIMES DAILY NEEDED FOR COUGH 12/08 completed Not Available Not Available Not Available prednisone 20 mg tablet TAKE 1 TABLET BY MOUTH TWICE DAILY FOR 5 DAYS 12/08 completed Not Available Not Available Not Available Nexium 40 mg capsule,del ayed release Take 1 capsule every day by oral route for 90 days. 06/05 completed Not Available Not Available Not Available amlodipine 5 mg tablet Take 1 tablet every day by oral route for 90 days. 2024 active Not Available Not Available Not Avai lable baclofen 10 mg tablet TAKE ONE-HALF TO ONE TABLET BY MOUTH 3 TIMES A DAY TO RELAX MUSCLES DIRECTED 04/07 completed Not Available Not Available Not Available pantoprazol e 40 mg tablet,nikki yed release Take 1 tablet every day by oral route for 90 days. 2024 active Not Available Not Available Not Avai lable omeprazole 20 mg capsule,del ayed release Take 1 capsule every day by oral route. 07/03 completed Not Available Not Available Not Available diclofenac sodium 75 mg tablet,nikki yed release Take 1 tablet twice a day by oral route for 30 days. 09/18 completed Not Available Not Available Not Available ibuprofen 600 mg tablet 11/13 completed Not Available Not Available Not Available atenolol 50 mg tablet Take 1 tablet every day for 90 days, 2024 active Not Available Not Available Not Avai lable neomycin-po lymyxin-hyd rocort 3.5 mg-10,000 unit/mL-1 % ear drops,susp INSTILL 4 DROPS INTO AFFECTED EAR(S) BY OTIC ROUTE 3 TIMES PER DAY 11/13 completed Not Available Not Available Not Available azithromyci n 500 mg tablet Take 1 tablet every day by oral route for 3 days. 04/07 completed Not Available Not Available Not Available ezetimibe 10 mg tablet TAKE ONE TABLET BY MOUTH DAILY 12/02 completed Not Available Not Available Not Available metoprolol tartrate 25 mg tablet Take 1 Tablet By Mouth Every 12 Hrs 10/17 completed Not Available Not Available Not Available Chantix Starting Month Box 0.5 mg (11)-1 mg (42) tablets in dose pack Take 1 startr pk by oral route as directed. 12/08 completed Not Available Not Available Not Available Vitals Date Recorded Systolic And Diastolic Provider Name and Address Organization Details Last Updated DateTime 12/02/2024 118/80 mm[Hg] Felipe Montes PA-C Attn: Accounting,[address] [place], [address], [facility] 12/02/2024 11:46:57 Date Recorded Body height Body mass index (BMI) Body weight Oxygen saturation Oxygen saturation in Arterial blood by Pulse oximetry Heart rate Provider Name and Address Organization Details Last Updated DateTime 5 176.53 cm 32.2 kg/m2 055695. 91 g 97 % 97 % 67 /min Dhara Eddy MA [facility] 11:24:53 Date Recorded Body height Body mass index (BMI) Body weight Oxygen saturation Oxygen saturation in Arterial blood by Pulse oximetry Heart rate Systolic And Diastolic Provider Name and Address Organization Details Last Updated DateTime 5 176.53 cm 32.7 kg/m2 082280. 28 g 95 % 95 % 62 /min 131/82 mm[Hg] Dhara Eddy MA [facility] 14:18:58 Date Recorded Body height Body mass index (BMI) Body weight Oxygen saturation Oxygen saturation in Arterial blood by Pulse oximetry Heart rate Systolic And Diastolic Provider Name and Address Organization Details Last Updated DateTime 4 176.53 cm 31.1 kg/m2 44554.7 7 g 98 % 98 % 66 /min 115/73 mm[Hg] Nida Echevarria MA [facility] 4 11:49:13 Date Recorded Body height Body mass index (BMI) Body weight Oxygen saturation Oxygen saturation in Arterial blood by Pulse oximetry Heart rate Systolic And Diastolic Provider Name and Address Organization Details Last Updated DateTime 5 176.53 cm 25.3 kg/m2 31233.0 7 g 96 % 96 % 68 /min 130/82 mm[Hg] BRAD Newell [facility] 5 11:46:43 Date Recorded Systolic And Diastolic Provider Name and Address Organization Details Last Updated DateTime 07/03/2025 148/78 mm[Hg] Felipe Montes PA-C Attn: Accounting,[address] [place], [address], [facility] 07/03/2025 11:38:09 Date Recorded Body height Body mass index (BMI) Body weight Oxygen saturation Oxygen saturation in Arterial blood by Pulse oximetry Heart rate Provider Name and Address Organization Details Last Updated DateTime 5 176.53 cm 32.3 kg/m2 595392. 51 g 98 % 98 % 94 /min Dhara Eddy MA [facility] 5 11:18:22 Social History Question Answer Notes LastModified by Organizat ion Details LastModified Time Tobacco Smoking Status Never Smoker Justine Murray MA null, [place] - [facility]S [facility]CLUDE 234 BEDS AT [facility] 09/18/2020 15:10:28 What Is Your Level Of Caffeine Consumption? Occasional Information not available 11/13/2021 In The 14 Days Before Symptom Onset, Have You Had Close Contact With A Laboratory-confir med COVID-19 While That Case Was Ill? No Information not available 02/01/2021 In The 14 Days Before Symptom Onset, Have You Had Close Contact With A Person Who Is Under Investigation For COVID-19 While That Person Was Ill? No Information not available 02/01/2021 Have You Been To An Area Known To Be High Risk For COVID-19? No Information not available 02/01/2021 What Type Of Diet Are You Following? REGULAR Information not available 09/18/2020 Which Illicit Or Recreational Drugs Have You Used? None Information not available 09/18/2020 Marital Status Single [facility] on not available 09/18/2020 What Was The Date Of Your Most Recent Tobacco Screening? 07/03/2025 Information not available 07/03/2025 What Is Your Relationship Status? Single Information not available 02/01/2021 Do You Use Your Seat Belt Or Car Seat Routinely? Yes Information not available 12/08/2022 Do You Have Smoke And Carbon Monoxide Detectors In Your Home? Yes Information not available 02/01/2021 Are You Passively Exposed To Smoke? Yes Information no t available 02/01/2021 General Stress Level Medium Information not available 09/18/2020 Has Tobacco Cessation Counseling Been Provided? Yes Information not available 02/01/2021 On What Date Was Tobacco Cessation Counseling Provided? 07/03/2025 Information not available 07/03/2025 Sex: Unknown Functional Status Question Answer Note LastModified by Organizat ion Details LastModified Time Do you use any illicit or recreational drugs? No Information not available 02/01/2021 Do you or have you ever used any other forms of tobacco or nicotine? Yes Information not available 05/06/2022 What is your level of alcohol consumption? None Information not available 04/07/2022 Do you or have you ever used smokeless tobacco? Former smokeless tobacco user Information not available 02/01/2021 Are you able to care for yourself independently? 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 Current user of electronic cigarettes every day Information not available 11/13/2021 Mental Status Question Answer Note LastModified by Organizat ion Details LastModified Time Do you feel stressed (tense, restless, nervous, or anxious, or unable to sleep at night)? [id number] unable to sleep at [facility] Information not available 04/07/2022 Family History Nothing Reported. Medical History Condition Response Coronary Artery Disease N Other N Atrial Fibrillation N High Blood Pressure Y Thyroid Problems N Kidney or Bladder Problems N Depression N COPD N Blood Clots N GI Problems N Skin Problems N Eating Disorder N Anemia N Heart Attack ([place]) N Diabetes N Anxiety Disorder N Muscle, Joint, or Bone Problems N Seizures/Epilepsy N Acid Reflux (GERD) N Cancer N Stroke N Allergies Y Asthma N ADHD N Substance Abuse N High Cholesterol N Hepatitis N Liver Disease N Schizophrenia N Headaches N Osteoporosis N Heart Failure N Immunizations Vaccine Type Date Status Note Provider Nam e and Address Organization Details Recorded Time COVID-19, mRNA, LNP-S, PF, 30 mcg/0.3 mL dose 1 completed Not Available [facility] 02/22/2022 15:53:33 COVID-19, mRNA, LNP-S, PF, 30 mcg/0.3 mL dose 1 completed Not Available [facility] 02/22/2022 15:53:33 Hep B, adolescent or pediatric 7 completed Not Available [facility] 07/03/2025 11:11:22 DTP 7 completed Not Available [facility] 07/03/2025 11:11:22 OPV, trivalent 7 completed Not Available [facility] 07/03/2025 11:11:22 Hib, unspecified formulation 7 completed Not Available [facility] 07/03/2025 11:11:22 Hib, unspecified formulation 0 completed Not Available [facility] 07/03/2025 11:11:22 IPV 0 completed Not Available [facility] 07/03/2025 11:11:22 MMR 0 completed Not Available [facility] 07/03/2025 11:11:22 Hep B, adolescent or pediatric 0 completed Not Available [facility] 07/03/2025 11:11:22 DTaP 0 completed Not Available [facility] 07/03/2025 11:11:22 DTaP 0 completed Not Available [facility] 07/03/2025 11:11:22 Hep B, adolescent or pediatric 0 completed Not Available [facility] 07/03/2025 11:11:22 Hib, unspecified formulation 0 completed Not Available [facility] 07/03/2025 11:11:22 IPV 0 completed Not Available [facility] 07/03/2025 11:11:22 MMR 1 completed Not Available [facility] 07/03/2025 11:11:22 IPV 1 completed Not Available [facility] 07/03/2025 11:11:22 DTaP 1 completed Not Available [facility] 07/03/2025 11:11:22 Tdap 2 completed Not Available [facility] 07/03/2025 11:11:22 Influenza, split virus, quadrivalent, PF 2 completed Not Available [facility] 07/03/2025 11:11:22 COVID-19, mRNA, LNP-S, PF, 30 mcg/0.3 mL dose, darrin-sucrose 2 completed LUIS [place], [place] - [facility] 11/19/2021 10:10:41 Meningococcal MCV4O 5 completed Not Available [facility] 09/17/2019 02:31:36 Past Encounters Encounter ID Performer Location Encounter Start Date Encounter Closed Date Diagnosis/Indication Diagnosis SNOMED-CT Code Diagnosis ICD10 Code Diagnosis IMO Codes Diagnosis Note [id number] Ad Chinchilla MD [facility] [address] [place] [address] 05/31/2015 16:16:33 05/31/2015 16:31:48 Administration of bacterial vaccine 314454313 Z23 [id number] Felipe Montes PA-C [facility] [address] [place] [address] 12/28/2015 14:09:41 12/28/2015 14:48:41 Pain in finger 37814816 M79.917 [id number] MD [facility] [address] [place] [address] 09/18/2020 14:54:01 09/19/2020 10:21:34 Otitis externa of left ear 3607154896 692635 H60.092 [id number] Ad Chinchilla MD [facility] [address] [place] [address] 02/01/2021 14:48:24 02/04/2021 05:32:09 Atypical chest pain 018171391 R07.89 [id number] Ad Chinchilla MD [facility] [address] [place] [address] 10/17/2021 13:16:52 10/21/2021 06:42:59 Atypical chest pain 381876853 R07.89 Essential hypertension 82873327 I10 [id number] Ad Chinchilla MD [facility] [address] [place] [address] 11/13/2021 10:45:54 11/13/2021 11:38:20 Essential hypertension 08914823 I10 [id number] Ad Chinchilla MD [facility] [address] [place] [address] 11/18/2021 16:26:34 11/18/2021 17:07:26 Mixed hyperlipidemia 901057053 E78.2 [id number] Ad Chinchilla MD [facility] [address] [place] [address] 11/19/2021 09:53:36 11/19/2021 10:42:47 Administration of SARS-CoV-2 mRNA vaccine 1650471254 Z23 [id number] Felipe Montes PA-C [facility] [address] [place] [address] 04/07/2022 11:14:11 04/07/2022 12:08:12 Overweight 783084835 E66.3 Esophageal dysphagia 408 [address]208 R13.19 [id number] Felipe Montes PA-C [facility] [address] [place] [address] 05/06/2022 17:51:37 05/06/2022 18:58:55 Mixed hyperlipidemia 871216328 E78.2 Gastroesop hageal reflux disease without esophagitis 644036177 K21.9 Nicotine dependence 5629 4008 F17.180 [id number] Felipe Montes PA-C [facility] [address] [place] [address] 12/08/2022 15:14:10 12/09/2022 09:32:05 Family history of diabetes mellitus in first degree relative 431655233 Z83.3 Overweight 427031056 E66 .3 [id number] Felipe Montes PA-C [facility] [address] [place] [address] 06/10/2023 14:47:05 06/12/2023 16:35:08 Essential hypertension 04056303 I10 Overweight 279126224 E66 .3 [id number] Felipe Montes PA-C [facility] [address] [place] [address] 12/09/2023 10:56:07 12/17/2023 16:02:33 Esophageal dysphagia 66717478 R13.19 Essential hypertension 61666637 I10 Overweight 195527386 E66 .3 [id number] Felipe Montes PA-C [facility] [address] [place] [address] 06/03/2024 11:40:45 06/09/2024 12:18:53 Mixed hyperlipidemia [id number] E78.2 Overweight [id number] E66 .3 [id number] Ad Chinchilla MD [facility] [address] [place] [address] 12/02/2024 11:07:41 12/05/2024 16:01:28 Mixed hyperlipidemia 923430644 E78.2 Gastroesop hageal reflux disease without esophagitis [id number] K21.9 Overweight [id number] E66 .3 [id number] Ad Chinchilla MD [facility] [address] [place] [address] 04/12/2025 14:10:39 04/13/2025 09:46:21 Intolerant of heat 21893362 R68.89 702152 Gastroesop hageal reflux disease without esophagitis 935738092 K21.9 [id number] Felipe Montes PA-C [facility] [address] [place] [address] 06/05/2025 11:08:36 06/07/2025 16:04:20 Essential hypertension 94867574 I10 79580 Gastroesop hageal reflux disease without esophagitis 788189296 K21.9 [id number] Felipe Montes PA-C [facility] [address] [place] [address] 07/03/2025 11:10:13 07/04/2025 15:09:52 Gastroesophageal reflux disease without esophagitis 523612080 K21.9 897374 Essential hypertension 60088858 I10 29074 add back the atenolol Atypical chest pain 1025 25621 R07.89 Health Concerns Section Related Observation LastModified by Organization Detai ls LastModified Time None Recorded Concern Status LastModified by Organization Details LastModified Time None Recorded Advance Directives Directive None Recorded Payers Insurance Date Sequence Insurance Name Policy Number Policy Eldridge Covered Member ID Eldridge Member ID Guarantor Name 05/04/2025 1 [employer] - ALLIED BENEFITS - OPEN ACCESS [id number] Toreyjordin Forde [id number] Feliciaabby Marion 05/04/2025 1 [employer] - AUXIANT (PPO) [id number] Torey Sanam [id number] Feliciaabby Marion 06/17/2021 2 [id number] Carlin Sanam [id number] Felicia Marion 05/04/2025 1 [place] Torey Sanam [id number] Felicia Marion 07/02/2025 1 [facility] - DOS ON OR AFTER 2025 (MEDICAID REPLACEMENT - HMO) [id number] Torey Sanam [id number] Felicia Marion 05/04/2025 1 [place] [facility] OF PUBLIC AID Torey Sanam [id number] Felicia Forde 05/04/2025 1 [facility] [place] - DOS PRIOR TO 2025 (MEDICAID REPLACEMENT - HMO) [id number] Torey Sanam [id number] Felicia Marion Notes Date Note Type Note Provider Name and Address Organization Details Recorded Time 06/03/2024 text/html ROS as noted in the HPI needs appt for refills...needs labs...hyperlipide obie.... Felipe Montes PA-C Attn: Accounting, [address] [place], [place], [address] [place] [address], [facility] 06/03/2024 12:12:32 12/02/2024 text/html ROS as noted in the HPI here for labs needs cholesterol checked ...is confused regarding his meds...otherwise all is well..atenolol is not working as well as it could be...recheck BP...also reports intermittant GERD was seen by GI in 2021 Felipe Montes PA-C Attn: [employer]ing, [address] [place], [place], [address] [place] [address], [facility] 12/02/2024 11:55:08 04/12/2025 text/html ROS as noted in the HPI went to ER vs heat exhaustion...since then has no heat tolerance... Felipe Montes PA-C Attn: [employer]ing, [address] [place], [place], [address] [place] [address], [facility] 04/12/2025 14:36:12 06/05/2025 text/html ROS as noted in the HPI omeprazole makes him feel strange..also pulse gets low on atenolol and feels horrible... Felipe Montes PA-C Attn: Accounting, [address] [place], [place], [address] [place] [address], [facility] 06/05/2025 11:59:10 07/03/2025 text/html ROS as noted in the HPI thinks he tweaked a rib moving drywall...also prilosec was giving side effects and so started pantoprazole... Felipe Montes PA-C Attn: [employer]ing[address] [place], [place], [address] [place] [address], [facility] 07/03/2025 11:38:34
--- OUTSIDE RECORDS SUMMARY | 2025-07-06 21:18 | XMS_ITS | Clinical Summary ---
Author Organization [facility] Address [address] [place] [address] Phone Care Team Providers Care Pharm Spec Name Role Phone Karimarla Kings DOWD Primary Care Provider Medications atenolol (TENORMIN) 50 MG Tablet Take 50 mg by mouth every morning. 01/02/2025 Active atorvastatin (LIPITOR) 20 MG Tablet Take 20 mg by mouth daily. 12/19/2024 Active omeprazole (PriLOSEC) 20 MG CAPSULE DELAYED RELEASE Take 1 Capsule by mouth 2 times daily. 180 Capsule 3 05/04/2025 Active Active Problems No known active problems Encounters Date Type Department Care Team Description 05/04/2025 Results Follow-Up [facility] - Gastroenterology [facility] [address] [place] [id number] Constantine Barry MD Pathology Surgical 05/03/2025 11:30 AM CDT - 05/03/2025 12:00 PM CDT Surgery [facility] [address] [place] [address] Constantine Barry MD OWD-[id number]-[id number] al biopsy r/o h. pylori 05/03/2025 10:56 AM CDT Anesthesia Event [facility] [address] [place] [address] Reese Gil APRN, YAKOV 05/03/2025 10:05 AM CDT Ancillary Procedure [facility] Main [address] [place] [address] Constantine Barry MD 05/03/2025 9:53 AM CDT - 05/03/2025 11:40 AM CDT Hospital Encounter [facility] Preop/Pacu II [address] [place] [address] Constantine Barry MD Discharge Disposition: Discharged to home or Selfcare 05/02/2025 11:30 AM CDT Office Visit [facility] - Gastroenterology [facility] [address] [place] [address] Constantine Barry MD Dysphagia, unspecified type (Primary Dx) Discharge Disposition: Discharged to home or Selfcare 05/02/2025 Travel from Last 3 Months Family History Medical History Relation Name Comments Hypertension Father Thyroid Cancer Father Chronic Obstructive Pulmonary Disease Mother Relation Name Status Comments Father Alive Mother Alive Social History Tobacco Use Types Packs/Day Years Used Date Smoking Tobacco: Never Smokeless Tobacco: Never Tobacco Cessation:Counseling Given: Not Answered Alcohol Use Standard Drinks/Week Comments Yes 0 (1 standard drink = 0.6 oz pur e alcohol) ocassional Sex and Gender Information Value Date Recorded Sex Assigned at Not on file Legal Sex Male 8:08 PM CDT Gender Identity Not on file Sexual Orientation Not on file Last Filed Vital Signs Vital Sign Reading Time Taken Comments Blood Pressure 128/66 05/03/2025 11:35 AM CDT Pulse 53 05/03/2025 11:35 AM CDT Temperature 36 C (96.8 F) 05/03/2025 11:35 AM CDT Respiratory Rate 19 05/03/2025 11:35 AM CDT Oxygen Saturation 97% 05/03/2025 11:35 AM CDT Inhaled Oxygen Concentration - - Weight 101.6 kg (224 lb) 05/02/2025 1:40 PM CDT Height 175.3 cm (5' 9) 05/02/2025 1:40 PM CDT Body Mass Index 33.08 05/02/2025 1:40 PM CDT Plan of Treatment Health Maintenance Due Date Last Done Comments Hepatitis C Virus (HCV) Screening 1996 Human Papillomavirus (HPV) Immunization (1 - 3-dose SCDM series) 2023 Influenza Immunization (#1) 2025 09/02/2021 SARS-COV-2 Immunization ( season) 2025 11/19/2021, 01/21/2021, 12/31/2020 Respiratory Syncytial Virus (RSV) Immunization (Adult) (1 - 1-dose 75+ series) 2071 Hepatitis B Immunization Completed , 10/29/1999, 1996 DTaP/Tdap/Td Immunization Discontinued 2011, 06/16/2001, 03/04/2000, Additional history exists TdaP Immunization Completed 04/08/2012 Meningococcal Immunization (ACWY) Completed 05/31/2015 Pneumococcal Immunization Combined Aged Out No longer eligible based on patient's age to complete this topic Rotavirus Immunization Aged Out No lo nger eligible based on patient's age to complete this topic Procedures Procedure Name Priority Date/Time Associated Diagnosis Comments PATHOLOGY SURGICAL Routine 05/03/2025 11:[address] EGD FLEXIBLE TRANSNASAL D X W/COLLJ SPEC BR/WA 05/03/2025 10:58 AM CDT EGD-gastritis- antral biopsy r/o h. pylori Special Needs 1030 ARRIVAL CONFIRMED BY PST Dx-Gerd CT ESOPHAGOGASTRODUODENOSCOP Y TRANSORAL DIAGNOSTIC 05/03/2025 10:58 AM CDT EGD-gastritis- antral biopsy r/o h. pylori Special Needs 1030 ARRIVAL CONFIRMED BY PST Dx-Gerd GI LAB IMAGING - EGD Routine 05/03/2025 10:01 AM CDT from Last 3 Months Results * Pathology Surgical (05/03/2025 11:02 AM CDT) Case Report Surgical Pathology Report Case: [id number] Authorizing Provider: Constantine Barry MD Collected: 05/03/2025 11:02 AM Ordering Location: [facility] Received: 05/03/2025 11:53 AM [facility] Gi Lab Main Pathologist: Pattie Atwood MD PhD Specimen: Stomach, antral biopsy r/o h.pylori 05/04/2025 8:56 AM CDT [facility] FINAL DIAGNOSIS Antrum, rule out H. pylori, biopsy: - Gastric mucosa with focal mild chronic inflammation - Negative for acute inflammation or H. pylori by H&E stain 05/04/2025 8:56 AM CDT [facility] at 0855 CDT Pre-Operative Diagnosis GERD 05/04/2025 8:56 AM CDT [facility] Gross Description A. antral biopsy r/o h.pylori Received in formalin labeled with the patient identifiers and antral biopsy are 2 fragments of soft pink tissue measuring 0.3 in greatest dimension. The specimen is entirely submitted in cassette A1. Total time of formalin fixation: 10 hours 29 minutes. 05/04/2025 8:56 AM CDT [facility] Microscopic Description Microscopic examination was performed which supports the final diagnosis. All control tissues stained appropriately. 05/04/2025 8:56 AM CDT [facility] Tissue STOMACH STRUCTURE / Unknown 05/03/2025 11:02 AM CDT 05/03/2025 11:53 AM CDT Constantine Barry MD PATHOLOGY/CYTOLOGY ORDERA BLES Final Result [facility] [address] [place] [address] * GI LAB IMAGING - EGD (05/03/2025 10:01 AM CDT) Constantine Barry MD IMG DIAGNOSTIC ORDERABLES Final Result from Last 3 Months Insurance MEDICAID [place] Care Teams Pharm Spec Relationship Specialty Start Date End Date Kings Montes, [address] [place] [address] PCP - General Physician Tennis Instructor 10/10/23
== END 2025-07-06 20:57 | disposition home or self-care (01) ==
PROVIDERS: Emergency Provider Emergency Medicine; PCP Physician Assistant
DX: J06.9 Acute upper respiratory infection, unspecified (principal); E78.5 Hyperlipidemia, unspecified; I10 Essential (primary) hypertension; Z20.822 Contact with and (suspected) exposure to COVID-19
CPT/HCPCS: 71045; 87637; 93005; 99283; A9270